=== PATIENT | male | born 1975 | race Caucasian/White ===

== ENCOUNTER 2018-05-28 21:01 | Emergency (ER) | payer MEDICAID, OTHER ==
[~2018-05-28] VITALS: Ht 165.1 cm; Wt 53.0 kg
[~2018-05-28 21:01] MED LIST: ALBU2.5V11 NEB
[2018-05-28 21:11] VITALS: BP 117/74
== END 2018-05-28 21:41 | disposition home or self-care (01) ==
LOC: ED 21:35
DX: J45.31 Mild persistent asthma with (acute) exacerbation (principal); F17.200 Nicotine dependence, unspecified, uncomplicated
CPT/HCPCS: 93005; 99283

== ENCOUNTER 2020-03-14 22:46 | Emergency (ER) | payer MEDICAID ==
[~2020-03-14] VITALS: Ht 157.5 cm; Wt 54.7 kg
[2020-03-14 22:54] VITALS: BP 111/71
--- NOTE | 2020-03-14 22:57 | NUR ---
Patient BIB ambulance c/o left side CP underneath nipple for multiple weeks. Patient states he has been seen [address] [facility] and "nothing has been done." Patient states he has been referred to cardiology but has not followed up. Patient states the pain increases with palpation, movement, and deep breathing. Patient is a smoker. Patient is in NAD. Respirations even and unlabored.
[2020-03-14] MEDS ORDERED: IBUPROFEN 200 MG TABLET PO ONE (23:00)
[2020-03-14 23:03] LABS: BASOPHILS % (AUTO) 1 % (0-1); EOSINOPHILS % (AUTO) 2 % (1-7); LYMPHOCYTES % (AUTO) 23 % (22-44); MEAN CORPUSCULAR HEMOGLOBIN 32.3 pg (27.5-34.5); MEAN CORPUSCULAR HGB CONC 34.2 g/dL (33.2-36.2); MEAN PLATELET VOLUME 7.9 fL (7.4-10.4); MONOCYTES % (AUTO) 10 % (2-9); NEUTROPHILS % (AUTO) 64 % (42-75); PLATELET COUNT 425 x10^3/uL (130-400); RED BLOOD COUNT 4.61 x10^6/uL (4.38-5.82); RED CELL DISTRIBUTION WIDTH 13.4 % (9.4-14.8)
[2020-03-14] MEDS ORDERED: IBUPROFEN 600 MG TABLET ONE (23:05)
[2020-03-14 23:06] LABS: MD NO
[2020-03-14 23:14] LABS: ALBUMIN 3.4 g/dL (3.4-5.0); ANION GAP 4 mmol/L (5-15); CALCIUM 8.4 mg/dL (8.5-10.1); CHLORIDE 106 mmol/L (98-107); CREATININE 1.26 mg/dL (0.7-1.3)
[2020-03-14 23:18] LABS: TROPONIN I < 0.015 ng/mL (0.000-0.045)
--- NOTE | 2020-03-15 00:05 | NUR ---
Discharge instructions given. Patient requesting to see ERP prior to leaving. ERP Gareth spoke with patient. Patient unsatisfied with outcome. Advised patient to follow up as d/c instructions have directed. Patient angry that nothing was done. Security called to escort patient out. Patient ambulatory with a steady gait. Belongings with patient.
== END 2020-03-15 00:08 | disposition home or self-care (01) ==
LOC: ED 23:07
DX: R07.89 Other chest pain (principal); Z72.9 Problem related to lifestyle, unspecified; R00.0 Tachycardia, unspecified; J45.909 Unspecified asthma, uncomplicated; F17.210 Nicotine dependence, cigarettes, uncomplicated
CPT/HCPCS: 36415; 71045; 80048; 82040; 84484; 85025; 93005; 99285; 99406